=== PATIENT | male | born 1940 | race Caucasian/White ===

== ENCOUNTER 2020-02-16 08:17 | Emergency (ER) | payer MEDICARE, BC ==
[2020-02-16] MEDS ORDERED: Ketorolac 30 MG/ML SDV IM ONE (08:38)
--- NOTE | 2020-02-16 08:44 | EDM.PDOC ---
ED HPI GENERAL MEDICAL PROBLEM - General Chief Complaint: Back Pain or Injury Stated Complaint: BACK/HIP PAIN Time Seen by Provider: 02/16/20 08:35 Source of Information: Reports: Patient History Limitations: Reports: No Limitations - History of Present Illness INITIAL COMMENTS - FREE TEXT/NARRATIVE: This 79 yo male patient reports to the ED with lower back pain and right hip pain. The patient reports he helped lift a friend a couple of days ago and injured his back. The patient reports increased pain in the posterior right hip that has gotten much worse today. Onset: Today Duration: Constant Location: Reports: Back, Pelvis Quality: Reports: Other Severity: Moderate Improves with: Reports: None Worsens with: Reports: None Context: Reports: Activity Associated Symptoms: Reports: No Other Symptoms Right Hip Pain Score (Numeric/FACES): 9 - Related Data Allergies Allergy/AdvReac Type Severity Reaction Status Date / Time No Known Allergies Allergy Verified 03/04/14 13:40 Home Meds: Home Meds Cholecalciferol (Vitamin D3) [Vitamin D] 2,000 unit PO DAILY 03/04/14 [History] Fish Oil/[place]-3 Fatty Acids [Fish Oil] 1 each PO BID 03/04/14 [History] Lisinopril 10 mg PO BEDTIME 03/04/14 [History] Multivitamins [Tab-A-Garett] 1 each PO DAILY 03/04/14 [History] Niacin [Niacin ER] 1,000 mg PO 03/04/14 [History] Psyllium Husk/Aspartame [Metamucil Powder] 288 gm PO DAILY 03/04/14 [History] Simvastatin [Zocor] 10 mg PO BEDTIME 03/04/14 [History] Ubidecarenone [Coq-10] 100 mg PO DAILY 03/04/14 [History] Tamsulosin HCl 0.4 mg PO BEDTIME 02/16/20 [History] Past Medical History Musculoskeletal History: Reports: Back Pain, Chronic, Other (See Below) Other Musculoskeletal History: wrist sx for collagen build up, L wrist Social & Family History - Tobacco Use Smoking Status *Q: Never Smoker - Caffeine Use Caffeine Use: Reports: Coffee - Recreational Drug Use Recreational Drug Use: No ED ROS GENERAL - Review of Systems Review Of Systems: Comprehensive ROS is negative, except as noted in HPI. ED EXAM,LOWER BACK PAIN/INJURY - Physical Exam Exam: See Below Exam Limited By: No Limitations General Appearance: Alert, WD/WN, Mild Distress Eye Exam: Bilateral Eye: EOMI, Normal Inspection, PERRL Ears: Normal External Exam, Normal Canal, Hearing Grossly Normal, Normal TMs Nose: Normal Inspection, Normal Mucosa, No Blood Throat/Mouth: Normal Inspection, Normal Lips, Normal Teeth, Normal Gums, Normal Oropharynx, Normal Voice, No Airway Compromise Head: Atraumatic, Normocephalic Neck: Normal Inspection, Supple, Non-Tender, Full Range of Motion Respiratory/Chest: No Respiratory Distress, Lungs Clear, Normal Breath Sounds, No Accessory Muscle Use, Chest Non-Tender Cardiovascular: Normal Peripheral Pulses GI/Abdominal: Normal Bowel Sounds, Soft, Non-Tender, No Organomegaly, No Distention, No Abnormal Bruit, No Mass (Male) Exam: Deferred Rectal (Males) Exam: Deferred Back Exam: Paraspinal Tenderness Extremities: Leg Pain (right sciatic nerve pain) Neurological: Alert, Normal Mood/Affect, Normal Dorsiflexion, CN II-XII Intact, Normal Plantar Flexion, Normal Gait, Normal Reflexes, No Motor/Sensory Deficits , Oriented x 3 Psychiatric: Normal Affect, Normal Mood Skin Exam: Warm, Dry, Intact, Normal Color, No Rash Lymphatic: No Adenopathy Course - Vital Signs Last Recorded V/S: Last Vital Signs Temp 35.9 C L 02/16/20 08:21 Pulse 69 02/16/20 08:21 Resp 18 02/16/20 08:21 BP 151/58 H 02/16/20 08:21 Pulse Ox 96 02/16/20 08:21 - Orders/Labs/Meds Meds: Medications Discontinued Medications Generic Name Dose Route Start Last Admin Trade Name Ramirez PRN Reason Stop Dose Admin Ketorolac Tromethamine 30 mg 02/16/20 08:38 02/16/20 08:44 Toradol IM 02/16/20 08:39 30 mg ONETIME ONE Administration Departure - Departure Time of Disposition: 08:41 Disposition: Home, Self-Care 01 Condition: Fair Clinical Impression: Sciatica Qualifiers: Laterality: right Qualified Code(s): M54.31 - Sciatica, right side - Discharge Information *PRESCRIPTION DRUG MONITORING PROGRAM REVIEWED*: Not Applicable *COPY OF PRESCRIPTION DRUG MONITORING REPORT IN PATIENT MARYJANE: Not Applicable Instructions: Sciatica, [id number] Forms: ED Department Discharge Care Plan Goals: The patient was advised of the examination results during the visit. The patient was given an injection of Toradol (30 mg) while in the ED. The patient was discharged a script for Toradol (10 mg) #20 to take 1 by mouth every 6 hours and Flexeril (10 mg) #20 to take 1 by mouth at bedtime as needed. If the patient has any additional symptoms or concerns, the patient should either return to the emergency department or visit his primary care facility. Sepsis Event Note - Evaluation Sepsis Screening Result: No Definite Risk - Focused Exam Vital Signs: Vital Signs Temp Pulse Resp BP Pulse Ox 02/16/20 08:21 35.9 C L 69 18 151/58 H 96 Date Exam was Performed: 02/16/20 Time Exam was Performed: 08:56
== END 2020-02-16 09:00 | disposition home or self-care (01) ==
LOC: DL.ED 08:17
DX: M54.41 Lumbago with sciatica, right side (principal)
CPT/HCPCS: 96372; 99283; J1885

== ENCOUNTER 2021-06-01 17:16 | Emergency (ER) | payer MEDICARE, BC ==
--- NOTE | 2021-06-01 18:37 | EDM.PDOC ---
ED HPI GENERAL MEDICAL PROBLEM - General Chief Complaint: Upper Extremity Injury/Pain Stated Complaint: BAD RIGHT SHOULDER Time Seen by Provider: 06/01/21 18:15 Source of Information: Reports: Correction Records History Limitations: Reports: No Limitations - History of Present Illness INITIAL COMMENTS - FREE TEXT/NARRATIVE: 80 y/o M c/o R upper back pain since yesterday. The pain is constant and feels like a lump in his back. The pain 10 and sharp in nature. Has not had any injury. Pt is a very active person and exercises daily on his Bowflex. He in concerned there is something wrong with his shoulder. Denies fever, couh, chills, drugs, eto, cp, db, abd pn, diff voiding, constipation, gall bladder problems, Duration: Day(s): Location: Reports: Upper Extremity, Right Quality: Reports: Ache, Sharp Severity: Mild Improves with: Reports: None Worsens with: Reports: None Right Shoulder Pain Score (Numeric/FACES): 8 - Related Data Allergies Allergy/AdvReac Type Severity Reaction Status Date / Time No Known Allergies Allergy Verified 06/01/21 17:57 Home Meds: Home Meds Cholecalciferol (Vitamin D3) [Vitamin D] 2,000 unit PO DAILY 03/04/14 [History] Fish Oil/[place]-3 Fatty Acids [Fish Oil] 1 each PO BID 03/04/14 [History] Lisinopril 10 mg PO BEDTIME 03/04/14 [History] Multivitamins [Tab-A-Garett] 1 each PO DAILY 03/04/14 [History] Niacin [Niacin ER] 1,000 mg PO ASDIRECTED 03/04/14 [History] Psyllium Husk/Aspartame [Metamucil Powder] 288 gm PO DAILY 03/04/14 [History] Simvastatin [Zocor] 10 mg PO BEDTIME 03/04/14 [History] Ubidecarenone [Coq-10] 100 mg PO DAILY 03/04/14 [History] Tamsulosin HCl 0.4 mg PO BEDTIME 02/16/20 [History] Past Medical History Cardiovascular History: Reports: High Cholesterol, Hypertension Genitourinary History: Reports: Prostate Disorder Musculoskeletal History: Reports: Back Pain, Chronic, Other (See Below) Other Musculoskeletal History: wrist sx for collagen build up, L wrist Social & Family History - Tobacco Use Tobacco Use Status *Q: Never Tobacco User - Caffeine Use Caffeine Use: Reports: Coffee - Recreational Drug Use Recreational Drug Use: No Review of Systems - Review of Systems Review Of Systems: Comprehensive ROS is negative, except as noted in HPI. ED EXAM, GENERAL - Physical Exam Exam: See Below Exam Limited By: No Limitations General Appearance: Alert, WD/WN, No Apparent Distress Respiratory/Chest: No Respiratory Distress, Lungs Clear, Normal Breath Sounds, No Accessory Muscle Use, Chest Non-Tender Cardiovascular: Normal Peripheral Pulses, Regular Rate, Rhythm, No Edema, No Gallop, No JVD, No Murmur, No Rub Peripheral Pulses: 2+: Radial (L), Radial (R) GI/Abdominal: Soft, Non-Tender Back Exam: Other (Palpable soft tissue changes consistant with muscle spasm to the R of the SPine at the T3 level. Pain with palpation at this area. Shoulder muscles intact and equal in strength and function bilaterally.) Psychiatric: Normal Affect Course - Vital Signs Last Recorded V/S: Last Vital Signs Temp 98.8 F 06/01/21 17:52 Pulse 91 06/01/21 17:52 Resp 14 06/01/21 17:52 BP 151/69 H 06/01/21 17:52 Pulse Ox 97 06/01/21 17:52 - Re-Assessments/Exams Free Text/Narrative Re-Assessment/Exam: 06/02/21 09:00 Demonstrated and assisted pt with stretches of the chest and back to releive muscle spasm. After 20 min of various stretches pt feels some relief. Instructed pt to continue stretches at home and have his massage the spasm until it fatigues. Also instructed pt to use tylenol and motrin as well as Ice for pain and swelling. Departure - Departure Time of Disposition: 18:35 Disposition: Home, Self-Care 01 Condition: Good Clinical Impression: Muscle spasm - Discharge Information *PRESCRIPTION DRUG MONITORING PROGRAM REVIEWED*: Not Applicable *COPY OF PRESCRIPTION DRUG MONITORING REPORT IN PATIENT MARYJANE: Not Applicable Instructions: Muscle Cramps and Spasms, [id number] Forms: ED Department Discharge Additional Instructions: Do the stretches we discussed 3 x a day. Use tylenol and motrin for pain as needed. Follow up with your primary care provider if any new symptoms or concerns develop.
== END 2021-06-01 18:43 | disposition home or self-care (01) ==
LOC: DL.ED 17:16
DX: M62.830 Muscle spasm of back (principal); I10 Essential (primary) hypertension; E78.00 Pure hypercholesterolemia, unspecified; Z79.899 Other long term (current) drug therapy
CPT/HCPCS: 99283

== ENCOUNTER → 2022-11-08 | Day surgery (SDC) | payer MEDICARE, BC ==
[~2022-11-08] MED LIST: Dextrose 5%-0.45% NaCl 1,000 ML IV SCH; Midazolam 1 MG/ML 2 ML SDV IV ONE; Midazolam 1 MG/ML 2 ML SDV ONE; Sodium Chloride 0.9% 10 ML Syringe FLUSH PRN; Sodium Chloride 0.9% 10 ML Syringe FLUSH SCH; fentaNYL 100 MCG/2 ML SDV IV ONE; fentaNYL 100 MCG/2 ML SDV ONE
== END | disposition home or self-care (01) ==
LOC: DL.ENDO 05:55
PROVIDERS: ATTEND Internal Medicine Gastroenterology
DX: K29.50 Unspecified chronic gastritis without bleeding (principal); D50.9 Iron deficiency anemia, unspecified; I10 Essential (primary) hypertension; E78.5 Hyperlipidemia, unspecified; E55.9 Vitamin D deficiency, unspecified; Z98.890 Other specified postprocedural states
CPT/HCPCS: 87077; J2250; J3010; J7042

== ENCOUNTER 2022-11-09 05:55 | Day surgery (SDC) | payer MEDICARE, BC ==
[2022-11-09] MEDS ORDERED: Midazolam 1 MG/ML 2 ML SDV IV ONE ×5 (05:56→07:11)
[2022-11-09] MEDS ORDERED: fentaNYL 100 MCG/2 ML SDV IV ONE ×3 (05:56→07:05)
[2022-11-09] MEDS ORDERED: Dextrose 5%-0.45% NaCl 1,000 ML IV SCH (06:00)
== END 2022-11-09 09:20 | disposition home or self-care (01) ==
LOC: DL.ENDO 05:55
PROVIDERS: ATTEND Internal Medicine Gastroenterology
DX: C18.4 Malignant neoplasm of transverse colon (principal); D50.9 Iron deficiency anemia, unspecified; I10 Essential (primary) hypertension; E78.5 Hyperlipidemia, unspecified; E55.9 Vitamin D deficiency, unspecified; Z98.890 Other specified postprocedural states
CPT/HCPCS: 88305; 88341; 88342; J2250; J3010; J7042

== ENCOUNTER 2024-01-19 07:19 | Day surgery (SDC) | payer MEDICARE, BC ==
[~2024-01-19 07:19] MED LIST changes: -Dextrose 5%-0.45% NaCl 1,000 ML IV SCH; -Midazolam 1 MG/ML 2 ML SDV IV ONE; -Sodium Chloride 0.9% 10 ML Syringe FLUSH PRN; -Sodium Chloride 0.9% 10 ML Syringe FLUSH SCH; -fentaNYL 100 MCG/2 ML SDV IV ONE
[2024-01-19] MEDS: Dextrose 5%-0.45% NaCl 1,000 ML IV SCH (07:48)
[2024-01-19] MEDS: fentaNYL 100 MCG/2 ML SDV IV ONE ×2 (08:55→08:56)
[2024-01-19] MEDS: Midazolam 1 MG/ML 2 ML SDV IV ONE ×3 (08:56→09:02)
== END 2024-01-19 10:12 | disposition home or self-care (01) ==
LOC: DL.ENDO 07:19
PROVIDERS: ATTEND Internal Medicine Gastroenterology
DX: Z12.11 Encounter for screening for malignant neoplasm of colon (principal); I10 Essential (primary) hypertension; E78.5 Hyperlipidemia, unspecified; D64.9 Anemia, unspecified; Z85.038 Personal history of other malignant neoplasm of large intestine; Z86.16 Personal history of COVID-19; Z98.84 Bariatric surgery status
CPT/HCPCS: G0105; J2250; J3010; J7042

== ENCOUNTER 2025-05-29 20:44 | Emergency (ER) | payer MEDICARE, BC ==
[2025-05-29] MEDS: Dexamethasone 4 MG/ML SDV IM ONE (22:00)
== END 2025-05-29 22:08 | disposition home or self-care (01) ==
LOC: DL.ED 20:44
DX: L27.0 Generalized skin eruption due to drugs and medicaments taken internally (principal); T50.995A Adverse effect of other drugs, medicaments and biological substances, initial encounter; I10 Essential (primary) hypertension; Z79.899 Other long term (current) drug therapy; Z86.16 Personal history of COVID-19
CPT/HCPCS: 96372; 99283; J1100